=== PATIENT | female | born 1995 | race Caucasian/White ===

== ENCOUNTER 2021-08-07 06:59 | Inpatient (IN) | payer BC ==
[2021-08-07 07:26] VITALS: BMI 26.8
[2021-08-07] MEDS ORDERED: Butorphanol Tartrate 1 MG/ML VIAL SLOW IVP PRN (09:45)
[2021-08-07] MEDS ORDERED: HYDROcodone/Acetaminophen 5/325 mg Tablet PO PRN (09:45)
[2021-08-07] MEDS ORDERED: NS w/ Oxytocin 30 units 500 ML IV SCH ×2 (09:45→20:31)
[2021-08-07] MEDS ORDERED: Ondansetron PF 4 MG/2 ML Vial IVP PRN ×2 (09:45→20:31)
[2021-08-07] MEDS ORDERED: hydrALAZINE 20 MG/ML VIAL SLOW IVP PRN ×2 (09:45→20:31)
[2021-08-07] MEDS ORDERED: Ibuprofen 800 MG TAB PO PRN (09:45)
[2021-08-07] MEDS ORDERED: Lactated Ringer's 1,000 ML IV SCH (09:45)
[2021-08-07] MEDS ORDERED: Lidocaine 1% (PF) 30 ML VIAL SC PRN (09:45)
[2021-08-07 10:57] LABS: Hemoglobin 13.1 g/dL (12.0-15.5); Mean Corpuscular HGB CONC 33.7 g/dL (32.0-36.0); Mean Corpuscular Hemoglobin 29.6 pg (27.0-33.0); Mean Platelet Volume 10.8 fl (7.4-10.4); Platelet Count 184 10x3/uL (150-450); RBC Distribution Width 14.1 % (11.5-14.5); Red Blood Cell (RBC) Count 4.42 10x6/uL (3.90-5.03); White Blood Cell (WBC) Count 11.2 10x3/uL (3.5-10.5)
[2021-08-07 11:25] LABS: Syphilis Antibody Nonreactive (Nonreactive); Syphilis Antibody Index 0.04 S/CO (<1.00 Non-Reactive)
[2021-08-07 11:26] LABS: Hep B Surf Ag Non-Reactive S/CO (NonReactive)
[2021-08-07 11:40] LABS: SARS-CoV-2 NAA Rapid Test Not Detected (NotDetected)
[2021-08-07] MEDS: Lactated Ringer's 1,000 ML IV SCH (12:59)
[2021-08-07] MEDS ORDERED: Benzocaine-Menthol 82.5 ML CAN TOP PRN (20:31)
[2021-08-07] MEDS ORDERED: Lanolin Ointment 7 GM TUBE TOP PRN (20:31)
[2021-08-07] MEDS ORDERED: Milk Of Magnesia 30 ML UDCUP PO PRN (20:31)
[2021-08-07] MEDS ORDERED: Boostrix 0.5 ML (Tdap) VIAL IM ONE (20:31)
[2021-08-07] MEDS ORDERED: Misoprostol 200 MCG TAB VAG PRN (20:31)
[2021-08-07] MEDS ORDERED: Bisacodyl 10 MG SUPP PR PRN (20:31)
[2021-08-07] MEDS: Docusate 100 MG CAP PO SCH (22:10)
[2021-08-07] MEDS: Ibuprofen 800 MG TAB PO SCH (22:33)
[2021-08-08] MEDS: Ibuprofen 800 MG TAB PO SCH ×3 (06:19→21:19)
[2021-08-08] MEDS: Ferrous Sulfate 325 MG TAB PO SCH ×2 (07:17→07:18)
[2021-08-08] MEDS: Lactated Ringer's 1,000 ML IV SCH (07:18)
[2021-08-08] MEDS: Docusate 100 MG CAP PO SCH ×2 (08:48→21:19)
[2021-08-09] MEDS: Ibuprofen 800 MG TAB PO SCH (05:15)
[2021-08-09] MEDS: Ferrous Sulfate 325 MG TAB PO SCH (06:53)
[2021-08-09 08:13] VITALS: BP 130/60; TEMP 98.1
[2021-08-09] MEDS: Docusate 100 MG CAP PO SCH (09:37)
== END 2021-08-09 11:30 | disposition home or self-care (01) | DRG 807 ==
LOC: CSHLD/OP 06:59 → CSHLD 12:59 → CSHPP 21:22
PROVIDERS: ADMIT Obstetrics & Gynecology; ATTEND Obstetrics & Gynecology
PROC: 10E0XZZ Delivery of Products of Conception, External Approach (ICD-10-PCS; principal; 2021-08-07)
PROC: 0KQM0ZZ Repair Perineum Muscle, Open Approach (ICD-10-PCS; 2021-08-07)
DX: O70.1 Second degree perineal laceration during delivery (principal); Z37.0 Single live birth; Z3A.39 39 weeks gestation of pregnancy; Z88.0 Allergy status to penicillin; Z88.6 Allergy status to analgesic agent; Z20.822 Contact with and (suspected) exposure to COVID-19
CPT/HCPCS: 36415; 85027; 86780; 86850; 86900; 86901; 87340; 99285; J2001; J2590; U0002

== ENCOUNTER 2025-01-19 20:19 | Inpatient (IN) | payer BC ==
[2025-01-19 20:37] VITALS: BMI 25.0
[2025-01-19] MEDS ORDERED: Ondansetron PF 4 MG/2 ML Vial IVP PRN (23:20)
[2025-01-19] MEDS ORDERED: hydrALAZINE 20 MG/ML VIAL SLOW IVP PRN (23:20)
[2025-01-19] MEDS ORDERED: Methylergonovine 0.2 MG/ML VIAL IM PRN (23:20)
[2025-01-19] MEDS ORDERED: Tranexamic Acid 1,000 MG/10 ML VIAL IVP PRN (23:20)
[2025-01-19] MEDS ORDERED: Oxytocin 30 units/NS 500 ML 500 ML IV SCH (23:30)
[2025-01-20 01:19] LABS: Hematocrit 35.5 % (34.9-44.5); Hemoglobin 11.6 g/dL (12.0-15.5); Mean Corpuscular Hemoglobin 29.4 pg (27.0-33.0); Mean Corpuscular Volume 90.1 fL (81.6-98.3); Platelet Count 174 10x3/uL (150-450); Red Blood Cell (RBC) Count 3.94 10x6/uL (3.90-5.03); White Blood Cell (WBC) Count 9.15 10x3/uL (3.5-10.5)
[2025-01-20 01:26] LABS: Syphilis Antibody Index 0.10 S/CO (<1.00 Non-Reactive)
[2025-01-20 01:28] LABS: Hep B Surf Ag - L&D Non-Reactive S/CO (NonReactive)
[2025-01-20] MEDS ORDERED: hydrALAZINE 20 MG/ML VIAL SLOW IVP PRN (07:36)
[2025-01-20] MEDS ORDERED: Bisacodyl 10 MG SUPP PR PRN (07:36)
[2025-01-20] MEDS ORDERED: Milk Of Magnesia 30 ML UDCUP PO PRN (07:36)
[2025-01-20] MEDS ORDERED: HYDROcodone/Acetaminophen 5/325 mg Tablet PO PRN ×2 (07:36)
[2025-01-20] MEDS ORDERED: Oxytocin 30 units/NS 500 ML 500 ML IV SCH (07:36)
[2025-01-20] MEDS ORDERED: Lanolin Ointment 7 GM TUBE TOP PRN (07:36)
[2025-01-20] MEDS: Lidocaine 1% (PF) 30 ML VIAL ONE (07:37)
[2025-01-20] MEDS: Boostrix 0.5 ML (Tdap) VIAL (>/=7 yrs of age) IM ONE (08:52)
[2025-01-20] MEDS: Ferrous Sulfate 325 MG TAB PO SCH (08:52)
[2025-01-20] MEDS: Ibuprofen 800 MG TAB PO SCH (08:56)
[2025-01-20] MEDS: Benzocaine-Menthol 82.5 ML CAN TOP PRN (08:57)
[2025-01-20] MEDS: Acetaminophen 500 MG TAB PO PRN (12:50)
[2025-01-21 05:59] VITALS: TEMP 98.1
[2025-01-21 08:27] VITALS: BP 119/67
== END 2025-01-21 11:20 | disposition home or self-care (01) | DRG 807 ==
LOC: CSHLD/OP 20:19 → CSHLD 23:18 → CSHPP 01-20 08:15
PROVIDERS: ADMIT Obstetrics & Gynecology; ATTEND Obstetrics & Gynecology
PROC: 10E0XZZ Delivery of Products of Conception, External Approach (ICD-10-PCS; principal; 2025-01-20)
PROC: 0HQ9XZZ Repair Perineum Skin, External Approach (ICD-10-PCS; 2025-01-20)
DX: O70.0 First degree perineal laceration during delivery (principal); Z37.0 Single live birth; Z88.0 Allergy status to penicillin; Z88.5 Allergy status to narcotic agent; Z3A.39 39 weeks gestation of pregnancy
CPT/HCPCS: 85027; 86780; 86850; 86900; 86901; 87340; 99285